=== PATIENT | male | born 1990 | race Caucasian/White ===

== ENCOUNTER 2018-04-06 00:45 | Emergency (ER) | payer OTHER ==
[~2018-04-06] VITALS: Ht 180.3 cm; Wt 77.3 kg
[2018-04-06] MEDS ORDERED: NALOXONE 0.4 MG/ML, 1ML ONE (01:13)
[2018-04-06] MEDS ORDERED: NALOXONE 0.4 MG/ML, 1ML IVPush PRN (01:30)
[2018-04-06] MEDS ORDERED: SODIUM CHLORIDE 0.9% 1,000ML IVBOLUS ONE (01:30)
[2018-04-06] MEDS ORDERED: PLEASE ENTER ALLERGIES MC SCH (02:00)
[2018-04-06 04:09] VITALS: BP 134/75
== END 2018-04-06 04:11 | disposition home or self-care (01) ==
LOC: ED 02:56
DX: T40.1X1A Poisoning by heroin, accidental (unintentional), initial encounter (principal); J69.0 Pneumonitis due to inhalation of food and vomit; F17.200 Nicotine dependence, unspecified, uncomplicated
CPT/HCPCS: 71045; 96374; 99285; J2310; J7030